=== PATIENT | male | born 1990 | race Hispanic/Latino ===

== ENCOUNTER 2019-07-26 02:43 | Emergency (ER) | payer SELFPAY ==
[2019-07-26] MEDS ORDERED: NA CHLORIDE 0.9% 0 ML ONE (02:55)
[2019-07-26] MEDS ORDERED: PROPOFOL 200 MG/20 ML VIAL IV ONE ×2 (02:55→02:59)
[2019-07-26] MEDS ORDERED: NA CHLORIDE 0.9% 1,000 ML ONE (02:59)
[2019-07-26] MEDS ORDERED: ETOMIDATE 20 MG/10 ML VIAL IV ONE (03:24)
[2019-07-26] MEDS ORDERED: FENTANYL CITR 100 MCG/2 ML ONE (03:24)
[2019-07-26] MEDS ORDERED: KETOROLAC 30 MG/ML INJ ONE (03:49)
--- NOTE | 2019-07-26 04:14 | EDPHYS ---
Physician Documentation [facility] Name: Umer Damian Jr Age: 29 yrs Sex: Male : 1990 Arrival Date: 07/26/2019 Time: 02:44 Bed 4 Private MD: ED Physician Nito Hernandez HPI: 07/26 03:56 This 29 yrs old Male presents to ER via Unassigned with complaints of Shoulder tw4 Dislocated. 03:56 The patient or guardian complains of deformity, an injury. right shoulder. Context: The tw4 problem was sustained at home. Onset: The symptoms/episode began/occurred today. Modifying factors: the symptoms are alleviated by nothing. The symptoms are aggravated by lifting weight. Associated signs and symptoms: The patient has no apparent associated signs or symptoms. Severity of symptoms: At their worst the symptoms were mild, in the emergency department the symptoms are unchanged. The patient has not experienced similar symptoms in the past. Historical: - Allergies: 02:55 NKDA; bb - Home Meds: 02:55 None [Active]; bb - PMHx: 02:55 Anxiety; repeated right shoulder dislocations; bb - PSHx: 02:55 None; bb - Immunization history:: Adult Immunizations up to date. - Social history:: Smoking status: Patient/guardian denies using tobacco. - Ebola Screening: : No symptoms or risks identified at this time. ROS: 03:56 Constitutional: Negative for fever, chills, and weight loss, Eyes: Negative for injury, tw4 pain, redness, and discharge, Cardiovascular: Negative for chest pain, palpitations, and edema, Respiratory: Negative for shortness of breath, cough, wheezing, and pleuritic chest pain, Abdomen/GI: Negative for abdominal pain, nausea, vomiting, diarrhea, and constipation, Back: Negative for injury and pain. 03:56 Skin: Negative for injury, rash, and discoloration, Neuro: Negative for headache, weakness, numbness, tingling, and seizure. 03:56 MS/extremity: Positive for injury or acute deformity, decreased range of motion, deformity, swelling, tenderness. Exam: 03:56 Constitutional: This is a well developed, well nourished patient who is awake, alert, tw4 and in no acute distress. Head/Face: Normocephalic, atraumatic. Chest/axilla: Normal chest wall appearance and motion. Nontender with no deformity. No lesions are appreciated. Cardiovascular: Regular rate and rhythm with a normal S1 and S2. No gallops, murmurs, or rubs. Normal PMI, no JVD. No pulse deficits. Respiratory: Lungs have equal breath sounds bilaterally, clear to auscultation and percussion. No rales, rhonchi or wheezes noted. No increased work of breathing, no retractions or nasal flaring. Abdomen/GI: Soft, non-tender, with normal bowel sounds. No distension or tympany. No guarding or rebound. No evidence of tenderness throughout. Skin: Warm, dry with normal turgor. Normal color with no rashes, no lesions, and no evidence of cellulitis. 03:56 Musculoskeletal/extremity: Extremities: noted in the anterior aspect of right shoulder: decreased ROM, deformity, ROM: limited active range of motion due to pain, limited passive range of motion due to pain, Circulation is intact in all extremities. Sensation intact. Severe pain noted. Compartment Syndrome exam of affected extremity: is normal. Vital Signs: 02:55 BP 137 / 94; Pulse 73; Resp 18 S; Temp 97.6(O); Pulse Ox 100% on R/A; Weight 75.3 kg bb (R); Height 5 ft. 6 in. (167.64 cm) (R); Pain 10/10; 03:15 BP 126 / 88; Pulse 50; Resp 16; Temp 98; Pulse Ox 100% on R/A; ea 03:51 BP 136 / 87; Pulse 64; Resp 16; Pulse Ox 99% on R/A; ea 04:20 BP 135 / 76; Pulse 60; Resp 16; Temp 97.5(TE); Pulse Ox 100% ; ea 02:55 Body Mass Index 26.79 (75.30 kg, 167.64 cm) Procedures: 04:15 Reduction: of the right shoulder, using traction, Immobilized with shoulder tw4 immobilizer. Patient tolerated well. Post reduction film - reveals normal alignment. Moderate sedation: Pre-procedure assessment: the patient has been NPO 2 hour(s) prior to arrival, Monitoring during procedure: ekg monitor, continuous pulse oximetry, nurse at bedside at all times, Medications employed: Fentanyl, 25 mcg(s), Propofol 140mgs. MDM: 02:50 Patient medically screened. tw4 04:15 Differential diagnosis: Anterior dislocation with fracture, Anterior dislocation tw4 without fracture, Posterior dislocation with fracture, Posterior dislocation without fracture. Data reviewed: vital signs, nurses notes. Test interpretation: by ED physician or midlevel provider: plain radiologic studies. Counseling: I had a detailed discussion with the patient and/or guardian regarding: the historical points, exam findings, and any diagnostic results supporting the discharge/admit diagnosis, radiology results. 07/26 02:51 Order name: Shoulder Right (2 View) XRAY tw4 07/26 03:41 Order name: Shoulder (1 View) XRAY tw4 07/26 02:51 Order name: Saline Lock; Complete Time: 02:56 tw4 Administered Medications: 03:10 Drug: NS 0.9% 1000 ml Route: IV; Rate: 125 ml/hr; Site: left antecubital; ea 04:32 Follow up: Response: No adverse reaction; IV Status: Completed infusion; IV Intake: ea 1000ml 03:18 Drug: Propofol 100 mg Route: IVP; Site: left antecubital; ea 03:30 Follow up: Response: No adverse reaction ea 03:50 Drug: TORadol 30 mg Route: IVP; Site: left antecubital; ea 04:10 Follow up: Response: No adverse reaction; Pain is decreased ea Disposition: 07/26/19 04:13 Discharged to Home. Impression: Recurrent dislocation, right shoulder. - Condition is Stable. - Discharge Instructions: Form - Return To Work, Shoulder Dislocation. - Prescriptions for Ibuprofen 800 mg Oral Tablet - take 1 tablet by ORAL route every 8 hours As needed take with food; 30 tablet. Tylenol- Codeine #3 300-30 mg Oral Tablet - take 2 tablet by ORAL route every 6 hours As needed; 30 tablet. - Work release form, Medication Reconciliation Form, Thank You Letter, Antibiotic Education, Prescription Opioid Use form. - Follow up: Marcos Corrales MD; When: Upon discharge from the Emergency Department; Reason: If symptoms return, Recheck today's complaints, Continuance of care. - Problem is new. - Symptoms have improved. Signatures: Dispatcher [employer] EDRenetta Colón RN RN bb Antunez, Elena, RN RN ea Wadley, Terrence, MD MD tw4 Corrections: (The following items were deleted from the chart) 04:34 04:13 07/26/2019 04:13 Discharged to Home. Impression: Recurrent dislocation, right ea shoulder. Condition is Stable. Discharge Instructions: Form - Return To Work. Forms are Medication Reconciliation Form, Thank You Letter, Antibiotic Education, Prescription Opioid Use. Follow up: Marcos Corrales; When: Upon discharge from the Emergency Department; Reason: If symptoms return, Recheck today's complaints, Continuance of care. Problem is new. Symptoms have improved. tw4
--- NOTE | 2019-07-26 04:14 | ER ---
Nurse's Notes [facility] Name: Umer Damian Jr Age: 29 yrs Sex: Male : 1990 Arrival Date: 07/26/2019 Time: 02:44 Bed 4 Private MD: Diagnosis: Recurrent dislocation, right shoulder Presentation: 07/26 02:53 Presenting complaint: Patient states: Reports he woke up with right shoulder pain, pt ea reports history of right shoulder dislocation. Transition of care: patient was not received from another setting of care. Onset of symptoms was July 26, 2019. Risk Assessment: Do you want to hurt yourself or someone else? Patient reports no desire to harm self or others. Initial Sepsis Screen: Does the patient meet any 2 criteria? No. Patient's initial sepsis screen is negative. Does the patient have a suspected source of infection? No. Patient's initial sepsis screen is negative. Care prior to arrival: None. 02:53 Method Of Arrival: Ambulatory ea 02:53 Acuity: CALI 3 ea Historical: - Allergies: 02:55 NKDA; bb - Home Meds: 02:55 None [Active]; bb - PMHx: 02:55 Anxiety; repeated right shoulder dislocations; bb - PSHx: 02:55 None; bb - Immunization history:: Adult Immunizations up to date. - Social history:: Smoking status: Patient/guardian denies using tobacco. - Ebola Screening: : No symptoms or risks identified at this time. Screenin:55 Abuse screen: Denies threats or abuse. Nutritional screening: No deficits noted. bb Tuberculosis screening: No symptoms or risk factors identified. Fall Risk None identified. Assessment: 02:53 General: Appears in no apparent distress. uncomfortable, Behavior is calm, cooperative. bb Pain: Complains of pain in right arm Pain currently is 10 out of 10 on a pain scale. Pain began suddenly. Neuro: Level of Consciousness is awake, alert, obeys commands, Oriented to person, place, time, situation. Cardiovascular: No deficits noted. Respiratory: Airway is patent Respiratory effort is even, unlabored, Respiratory pattern is regular. GI: No signs and/or symptoms were reported involving the gastrointestinal system. Derm: Skin is pink, warm \T\ dry. Musculoskeletal: Capillary refill < 3 seconds, Reports pain in right arm. 03:30 Reassessment: Patient and/or family updated on plan of care and expected duration. Pain ea level reassessed. Patient is alert, oriented x 3, equal unlabored respirations, skin warm/dry/pink. 04:31 Reassessment: Patient and/or family updated on plan of care and expected duration. Pain ea level reassessed. Patient is alert, oriented x 3, equal unlabored respirations, skin warm/dry/pink. Discharge instruction given to patient, verbalized the understanding of instruction. Pt left ED ambulatory with significant other, pt tolerated well. Patient states feeling better. Vital Signs: 02:55 BP 137 / 94; Pulse 73; Resp 18 S; Temp 97.6(O); Pulse Ox 100% on R/A; Weight 75.3 kg bb (R); Height 5 ft. 6 in. (167.64 cm) (R); Pain 10/10; 03:15 BP 126 / 88; Pulse 50; Resp 16; Temp 98; Pulse Ox 100% on R/A; ea 03:51 BP 136 / 87; Pulse 64; Resp 16; Pulse Ox 99% on R/A; ea 04:20 BP 135 / 76; Pulse 60; Resp 16; Temp 97.5(TE); Pulse Ox 100% ; ea 02:55 Body Mass Index 26.79 (75.30 kg, 167.64 cm) bb ED Course: 02:44 Patient arrived in ED. ds1 02:50 Nito Hernandez MD is Attending Physician. tw4 02:55 Patient has correct armband on for positive identification. Call light in reach. Side bb rails up X 1. Adult w/ patient. Pulse ox on. NIBP on. Warm blanket given. 02:55 Arm band placed on right wrist. Patient placed in an exam room, on a stretcher, on ea pulse oximetry. 03:06 X-ray completed. Patient tolerated procedure well. kw 03:07 Shoulder Right (2 View) XRAY In Process Unspecified. EDMS 03:15 Inserted saline lock: 20 gauge in left antecubital area, using aseptic technique. ea 03:18 Assist provider with reduction of right shoulder using manipulation, Set up for ea procedure. Performed by Nito Hernandez MD Immobilized with shoulder immobilizer Patient tolerated well. 03:50 Shoulder (1 View) XRAY In Process Unspecified. EDMS 03:54 Deanna Latham, RN is Primary Nurse. ea 03:59 Triage completed. ea 04:12 Marcos Corrales MD is Referral Physician. tw4 04:30 IV discontinued, intact, bleeding controlled, No redness/swelling at site. Pressure ea dressing applied. Administered Medications: 03:10 Drug: NS 0.9% 1000 ml Route: IV; Rate: 125 ml/hr; Site: left antecubital; ea 04:32 Follow up: Response: No adverse reaction; IV Status: Completed infusion; IV Intake: ea 1000ml 03:18 Drug: Propofol 100 mg Route: IVP; Site: left antecubital; ea 03:30 Follow up: Response: No adverse reaction ea 03:50 Drug: TORadol 30 mg Route: IVP; Site: left antecubital; ea 04:10 Follow up: Response: No adverse reaction; Pain is decreased ea Intake: 04:32 IV: 1000ml; Total: 1000ml. ea Outcome: 04:13 Discharge ordered by . tw4 04:31 Discharged to home ambulatory, with significant other. ea 04:31 Condition: stable 04:31 Discharge instructions given to patient, family, Instructed on discharge instructions, follow up and referral plans. medication usage, Demonstrated understanding of instructions, follow-up care, medications, Prescriptions given X 2. 04:34 Patient left the ED. ea Signatures: Dispatcher [employer] [facility] Tammi Miranda ds1 Renetta Angeles, RN Ashley Mares Deanna Latham, Nito Bender RN, ea, MD MD tw4
[2019-07-26 04:40] VITALS: O2SAT 100
[2019-07-26 04:47] VITALS: BP 135/76; TEMP 97.5
--- NOTE | 2019-07-26 08:04 | RAD REPORT ---
EXAM DESCRIPTION: RAD - Shoulder 1 View - 07/26/2019 3:51 am CLINICAL HISTORY: Right shoulder dislocation FINDINGS: Limited one view series obtained Previously described shoulder dislocation appears reduced. A Hill-Sachs deformity is present The humeral head is high riding on this image which may be secondary to positioning.
--- NOTE | 2019-07-26 08:05 | RAD REPORT ---
EXAM DESCRIPTION: RAD - Shoulder Right 2 View - 07/26/2019 3:08 am CLINICAL HISTORY: Right shoulder pain status post injury FINDINGS: Anterior humeral head dislocation. No fracture seen
== END 2019-07-26 04:34 | disposition home or self-care (01) ==
LOC: ER 02:43
PROC: 0RSJXZZ Reposition Right Shoulder Joint, External Approach (ICD-10-PCS; principal; 2019-07-26)
DX: M24.411 Recurrent dislocation, right shoulder (principal); X58.XXXA Exposure to other specified factors, initial encounter; Y93.9 Activity, unspecified; Y92.009 Unspecified place in unspecified non-institutional (private) residence as the place of occurrence of the external cause
CPT/HCPCS: 73020; 96361; 96374; 96375; 99285; J2704; J3010; J7030

== ENCOUNTER 2019-10-07 08:03 | Emergency (ER) | payer OTHER ==
--- OUTSIDE RECORDS SUMMARY | 2019-10-07 08:05 | XMS REPORT ---
:1990 Author Organization e[employer] Care Team Providers Name Role Phone Tiago Stinson Provider Role Unavailable Allergies No Known Allergies Problems No Known Problems Medications No Known Medications Results No Known Results Summary Purpose eClinicalWorks Submission
--- OUTSIDE RECORDS SUMMARY | 2019-10-07 08:05 | XMS REPORT ---
:1990 Author Organization [employer] Care Team Providers Name Role Tiago Monroy Provider Role Unavailable Allergies, Adverse Reactions, Alerts Substance Reaction Event Type N.K.D.A. Info Not Available Non Drug Allergy Problems Problem Type Condition Code Onset Dates Condition Status Assessment Pain, joint, shoulder, right M25.511 Active Assessment Recurrent dislocation of right M24.411 Active shoulder Assessment Tear of right glenoid labrum, S43.431A Active initial encounter Medications No Known Medications Results No Known Results Summary Purpose eClinicalWorks Submission
[2019-10-07] MEDS ORDERED: LIDOCAINE 1% MPF 5 ML VIAL ONE (08:24)
--- NOTE | 2019-10-07 09:16 | ER ---
Nurse's Notes [facility] Name: Umer Damian Jr Age: 29 yrs Sex: Male : 1990 Arrival Date: 10/07/2019 Time: 08:05 Bed 5 Private MD: Diagnosis: Laceration of Axilla Presentation: 10/07 08:16 Presenting complaint: Patient states: was working on some windows last night, fell onto iw a piece of glass, laceration to left axillary area, not bleeding, incident occurred at 0100 this morning. Transition of care: patient was not received from another setting of care. Complicating Factors: There are no complicating factors for this patient. Onset of symptoms was October 07, 2019. Risk Assessment: Do you want to hurt yourself or someone else? Patient reports no desire to harm self or others. Initial Sepsis Screen: Does the patient meet any 2 criteria? No. Patient's initial sepsis screen is negative. Does the patient have a suspected source of infection? No. Patient's initial sepsis screen is negative. Care prior to arrival: None. 08:16 Method Of Arrival: Ambulatory 08:16 Acuity: CALI 4 iw Historical: - Allergies: 08:19 NKDA; iw 08:18 NKDA; ph - Home Meds: 08:19 None [Active]; iw - PMHx: 08:19 Anxiety; repeated right shoulder dislocations; iw 08:18 Anxiety; repeated right shoulder dislocations; ph - PSHx: 08:19 None; iw 08:18 None; ph - Immunization history:: Adult Immunizations Last tetanus immunization: unknown, Adult Immunizations unknown. - Social history:: Smoking status: unknown. - Ebola Screening: : Patient negative for fever greater than or equal to 101.5 degrees Fahrenheit, and additional compatible Ebola Virus Disease symptoms Patient denies exposure to infectious person Patient denies travel to an Ebola-affected area in the 21 days before illness onset No symptoms or risks identified at this time No symptoms or risks identified at this time. Screenin:17 Abuse screen: Denies threats or abuse. Denies injuries from another. Nutritional ph screening: No deficits noted. Tuberculosis screening: No symptoms or risk factors identified. Fall Risk None identified. Assessment: 08:28 General: Appears in no apparent distress. comfortable, slender, Behavior is calm, ph cooperative, appropriate for age. Pain: Complains of pain in left axilla. Neuro: Level of Consciousness is awake, alert, obeys commands, Oriented to person, place, time, situation. Cardiovascular: Capillary refill < 3 seconds in bilateral fingers Patient's skin is warm and dry. Respiratory: Airway is patent Respiratory effort is even, unlabored, Respiratory pattern is regular, symmetrical. Derm: Skin is healthy with good turgor, Skin is pink, warm \T\ dry. Musculoskeletal: Circulation, motion, and sensation intact. Range of motion: intact in all extremities. Injury Description: Laceration sustained to left axilla is clean, 0.5 to 2.5 cm long, not bleeding, was sustained 6-12 hours ago. 09:38 Reassessment: Patient appears in no apparent distress at this time. Patient and/or ph family updated on plan of care and expected duration. Pain level reassessed. Patient is alert, oriented x 3, equal unlabored respirations, skin warm/dry/pink. D/C pending 15 min shot time. Vital Signs: 08:17 BP 124 / 83; Pulse 72; Resp 20; Pulse Ox 100% on R/A; ph 09:58 BP 119 / 78; Pulse 71; Resp 18; Pulse Ox 98% on R/A; ph ED Course: 08:05 Patient arrived in ED. mr 08:11 Boni Brannon MD is Attending Physician. kdr 08:14 Darin Mccall PA is PHCP. iw 08:18 Triage completed. iw 08:19 Arm band placed on. iw 08:28 Sweta Kyle RN is Primary Nurse. ph 08:31 Patient has correct armband on for positive identification. Placed in gown. Bed in low ph position. Call light in reach. Side rails up X 1. Pulse ox on. NIBP on. Door closed. Noise minimized. Warm blanket given. 09:58 No provider procedures requiring assistance completed. Patient did not have IV access ph during this emergency room visit. Administered Medications: 09:00 Drug: Lidocaine (1 %) 1 amp Volume: 5 ml; Route: Infiltration; ph 09:57 Follow up: Response: No adverse reaction ph 09:37 Drug: Tetanus-Diphtheria Toxoid Adult 0.5 ml {Director Of Services: [employer]. Exp: ph 04/20/2021. Lot #: [id number]. } Route: IM; Site: right deltoid; 09:57 Follow up: Response: No adverse reaction ph Outcome: 09:15 Discharge ordered by . melanie 09:58 Discharged to home ambulatory, with family. ph 09:58 Condition: good 09:58 Discharge instructions given to patient, Instructed on discharge instructions, follow up and referral plans. wound care, Demonstrated understanding of instructions, follow-up care, wound care. 09:59 Patient left the ED. ph Signatures: Boni Brannon MD MD kdr Mickail, Joel, PA PA jmm Rivera, Mary mr Williams, Irene, RN RN Sweta Kyle RN RN ph
--- NOTE | 2019-10-07 09:16 | EDPHYS ---
Physician Documentation [facility] Name: Umer Damian Jr Age: 29 yrs Sex: Male : 1990 Arrival Date: 10/07/2019 Time: 08:05 Bed 5 Private MD: ED Physician Boni Brannon HPI: 10/07 08:22 This 29 yrs old Male presents to ER via Ambulatory with complaints of jmm Laceration. 08:22 The patient or guardian complains of injury, a laceration. Onset: The symptoms/episode jmm began/occurred acutely, 6 hour(s) ago. Associated signs and symptoms: Pertinent negatives: erythema, fever, swelling. This is a 29 year old male with a history of anxiety that presents to the ED with complaints of left shoulder laceration after falling on broken glass early this morning. Patient is not UTD on tetanus immunizations. Denies other injury. Historical: - Allergies: 08:19 NKDA; iw 08:18 NKDA; ph - Home Meds: 08:19 None [Active]; iw - PMHx: 08:19 Anxiety; repeated right shoulder dislocations; iw 08:18 Anxiety; repeated right shoulder dislocations; ph - PSHx: 08:19 None; iw 08:18 None; ph - Immunization history:: Adult Immunizations Last tetanus immunization: unknown, Adult Immunizations unknown. - Social history:: Smoking status: unknown. - Ebola Screening: : Patient negative for fever greater than or equal to 101.5 degrees Fahrenheit, and additional compatible Ebola Virus Disease symptoms Patient denies exposure to infectious person Patient denies travel to an Ebola-affected area in the 21 days before illness onset No symptoms or risks identified at this time No symptoms or risks identified at this time. ROS: 08:22 Constitutional: Negative for fever, chills, and weight loss, Cardiovascular: Negative jmm for chest pain, palpitations, and edema, Respiratory: Negative for shortness of breath, cough, wheezing, and pleuritic chest pain. 08:22 Skin: Positive for laceration(s). 08:22 All other systems are negative. Exam: 08:22 Constitutional: This is a well developed, well nourished patient who is awake, alert, jmm and in no acute distress. Head/Face: atraumatic. Eyes: EOMI, no conjunctival erythema appreciated ENT: Moist Mucus Membranes Neck: Trachea midline, Supple Chest/axilla: Normal chest wall appearance and motion. Cardiovascular: Regular rate and rhythm. No edema appreciated Respiratory: Normal respirations, no respiratory distress appreciated Abdomen/GI: Non distended, soft Back: Normal ROM 08:22 Skin: 1.5 cm laceration noted to the left anterior shoulder. 08:22 Neuro: Orientation: is normal, Mentation: is normal, Memory: is normal. 08:22 Psych: Behavior/mood is pleasant, cooperative. Vital Signs: 08:17 BP 124 / 83; Pulse 72; Resp 20; Pulse Ox 100% on R/A; ph 09:58 BP 119 / 78; Pulse 71; Resp 18; Pulse Ox 98% on R/A; ph Laceration: 09:13 Wound Repair of 1.5cm ( 0.6in ) subcutaneous laceration to left axilla. Distal jmm neuro/vascular/tendon intact. Anesthesia: Local anesthetic administered with 2 mls of 1% lidocaine. Wound prep: Moderate cleansing with betadine by me. Skin closed with 2 4-0 Prolene using simple sutures and sterile technique. Patient tolerated well. MDM: 08:22 Patient medically screened. [facility] 09:13 Data reviewed: vital signs, nurses notes. Counseling: I had a detailed discussion with melanie the patient and/or guardian regarding: the historical points, exam findings, and any diagnostic results supporting the discharge/admit diagnosis, the need for outpatient follow up, to return to the emergency department if symptoms worsen or persist or if there are any questions or concerns that arise at home. ED course: Patient given wound infection return precautions. Patient understood and agrees with the plan of care. . 10/07 08:57 Order name: Prolene, Sutures; Complete Time: 08:56 ph 10/07 08:57 Order name: Dressing - Wound; Complete Time: 08:56 ph 10/07 08:57 Order name: Gloves, Sterile; Complete Time: 08:56 ph 10/07 08:57 Order name: Setup Suture Tray; Complete Time: 08:56 ph Administered Medications: 09:00 Drug: Lidocaine (1 %) 1 amp Volume: 5 ml; Route: Infiltration; ph 09:57 Follow up: Response: No adverse reaction ph 09:37 Drug: Tetanus-Diphtheria Toxoid Adult 0.5 ml {[employer]amp [employer] Light: [employer]. Exp: ph 04/20/2021. Lot #: [id number]. } Route: IM; Site: right deltoid; 09:57 Follow up: Response: No adverse reaction ph Disposition: 16:38 Co-signature as Attending Physician, Boni Brannon MD I agree with the assessment and kdr plan of care. Disposition: 10/07/19 09:15 Discharged to Home. Impression: Laceration of Axilla. - Condition is Stable. - Discharge Instructions: Laceration Care, Adult. - Medication Reconciliation Form, Thank You Letter, Antibiotic Education, Prescription Opioid Use form. - Follow up: Private Physician; When: 1 week; Reason: Recheck today's complaints, Continuance of care, Staple/Suture removal, Re-evaluation by your physician. Signatures: Boni Brannon MD MD kdr Mickail, Joel, PA PA jmm Williams, Irene, RAMONITA RN iw Sweta Kyle RN RN ph Corrections: (The following items were deleted from the chart) 09:59 09:15 10/07/2019 09:15 Discharged to Home. Impression: Laceration of Axilla. Condition ph is Stable. Forms are Medication Reconciliation Form, Thank You Letter, Antibiotic Education, Prescription Opioid Use. Follow up: Private Physician; When: 1 week; Reason: Recheck today's complaints, Continuance of care, Staple/Suture removal, Re-evaluation by your physician. melanie
[2019-10-07] MEDS ORDERED: TETANUS & DIPHTHERIA TOX,ADULT 0.5 ML VIAL ONE (09:31)
[2019-10-07 10:06] VITALS: BP 119/78; O2SAT 98
== END 2019-10-07 09:59 | disposition home or self-care (01) ==
LOC: ER 08:03
PROC: 0XQ5XZZ Repair Left Axilla, External Approach (ICD-10-PCS; principal; 2019-10-07)
DX: S41.112A Laceration without foreign body of left upper arm, initial encounter (principal); W01.110A Fall on same level from slipping, tripping and stumbling with subsequent striking against sharp glass, initial encounter; Y93.9 Activity, unspecified; Y92.9 Unspecified place or not applicable; Z23 Encounter for immunization
CPT/HCPCS: 90471; 90714; 99283

== ENCOUNTER 2019-11-01 06:10 | Day surgery (SDC) | payer OTHER ==
--- NOTE | 2019-10-11 10:06 | RAD REPORT ---
EXAM DESCRIPTION: Nirmal Mendes (2 Views)10/11/2019 9:00 am CLINICAL HISTORY: Preop COMPARISON: None FINDINGS: The lungs appear clear of acute infiltrate. The heart is normal size IMPRESSION: No acute abnormalities displayed
[2019-10-11 10:11] LABS: Absolute Lymphocytes (CBC) 1.9 K/uL (0.7-4.9); Basophils % 0.6 % (0-1.3); Hematocrit 40.9 % (39.6-49.0); Lymphocytes % 32.4 % (15.3-44.8); MPV 8.2 fL (7.6-11.3); Potassium 3.9 mmol/L (3.5-5.1); RBC Red Blood Cell Count 4.28 M/uL (4.33-5.43)
[2019-10-11 10:15] LABS: Protime INR 0.94
--- NOTE | 2019-10-11 12:03 | EKG ---
Test Date: 2019-10-11 Test Time: 08:37:33 Drug Safety Coordinator: AARON MEASUREMENT RESULTS: Intervals: Rate: 50 MN: 168 QRSD: 112 QT: 418 QTc: 381 [place]: P: 59 MN: 168 QRS: -24 T: -51 INTERPRETIVE STATEMENTS: Sinus bradycardia Minimal voltage criteria for LVH, may be normal variant Septal infarct, age undetermined Abnormal ECG Compared to ECG 04/30/2016 17:22:26 Left-axis deviation no longer present Myocardial infarct finding still present Electronically Signed On 10-11-19 12:03:18 [address] PASSENGER FIRER by Luis Daniel Donald
--- OUTSIDE RECORDS SUMMARY | 2019-11-01 06:16 | XMS REPORT ---
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
--- OUTSIDE RECORDS SUMMARY | 2019-11-01 06:16 | XMS REPORT ---
:1990 Author Organization eClinicalWorks Care Team Providers Name Role Phone Tiago Stinson Provider Role Unavailable Allergies, Adverse Reactions, Alerts Substance Reaction Event Type N.K.D.A. 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 Cyclobenzaprine HCl [facility] 89534119963 10 MG Oral Active TOME CASEY TABLETA POR V?A ORAL AL ACOSTARSE Tramadol HCl ND 26553478111 50 MG Orally Oct 06, Active 1 tablet Q6H PRN PAIN 2019 Ciprofloxacin HCl ND 25444401647 500 MG Oral Active TOME CASEY TABLETA DOS VECES AL D?A MethylPREDNISolone ND 48705922366 4 MG Oral Active TOME 6 TABLETAS EL PRIMER D?A SEG?N LO INDICA EL PAQUETE, Y REDUZCA 1 TABLETA CADA D?A POR 6 D? PrednisoLONE Acetate [facility] 42682410574 1 % Ophthalmic Active PONGA CASEY GOTA EN NAKITA HEIDY CUATRO VECES AL D?A Results No Known Results Summary Purpose eClinicalWorks Submission
--- OUTSIDE RECORDS SUMMARY | 2019-11-01 06:16 | XMS REPORT ---
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
[2019-11-01] MEDS ORDERED: LIDOCAINE 2% MPF 5 ML VIAL ONE ×2 (06:26→06:32)
[2019-11-01] MEDS ORDERED: MIDAZOLAM HCL 2 MG/2 ML INJ ONE (06:26)
[2019-11-01] MEDS ORDERED: propofoL 200 MG/20 ML VIAL IV ONE (06:26)
[2019-11-01] MEDS ORDERED: ROCURONIUM 50 MG/5 ML VIAL IV ONE (06:26)
[2019-11-01] MEDS ORDERED: FENTANYL CITR 100 MCG/2 ML ONE (06:26)
[2019-11-01] MEDS ORDERED: Ringers Lactate 1,000 ML IV ONE ×2 (06:28→07:04)
[2019-11-01] MEDS ORDERED: CEFAZOLIN/SWI 1gm 1 GM/10 ML SYR ONE (06:28)
[2019-11-01] MEDS ORDERED: dexAMETHasone 10 MG/ML VIAL ONE (06:32)
[2019-11-01] MEDS ORDERED: NS 0.9% VIAL 10 ML ONE (06:32)
[2019-11-01] MEDS ORDERED: ROPLVACAINE HCL 20 ML ONE (06:33)
[2019-11-01] MEDS ORDERED: EPINEPHRINE/PF 1 MG/ML AMP ONE (07:04)
[2019-11-01] MEDS ORDERED: ONDANSETRON 4 MG/2 ML VIAL ONE ×2 (08:18→09:58)
[2019-11-01] MEDS ORDERED: KETOROLAC 30 MG/ML INJ ONE (09:06)
[2019-11-01] MEDS: MORPHINE 4 MG/ML SYR ONE ×2 (09:37→09:53)
--- NOTE | 2019-11-01 09:38 | P.BOP ---
Preoperative diagnosis: right shoulder anterior labral tear Postoperative diagnosis: same Primary procedure: right shoulder arthroscopic anterior labral repair Boiler Helper: NONE,NONE Estimated blood loss: <10 cc Specimen: none Findings: see dictation Anesthesia: General Complications: None Implants: 3- 2.9 mm Arthrex pushlocks Fluids & blood products: per anesthesia record Transferred to: Recovery Room Condition: Good
[2019-11-01] MEDS ORDERED: MEPERIDINE HCL 25 MG/0.5 ML ONE (09:57)
[2019-11-01] MEDS ORDERED: MORPHINE 4 MG/ML SYR ONE (09:58)
--- NOTE | 2019-11-01 10:27 | RAD REPORT ---
EXAM DESCRIPTION: RAD - Shoulder 1 View - 11/01/2019 10:11 am CLINICAL HISTORY: ^POST RIGHT SHOULDER ARTHROSCOPIC BANKART REPAIR COMPARISON: MRI right FINDINGS: Single postop review of the right shoulder shows no fracture or dislocation of the proxima l humerus. AC joint is normal. Acromial humeral joint space is normal. Small defect is seen in the in ferior aspect of the glenoid, presumed to be area of surgical repair. IMPRESSION: Postop right shoulder examination showing no suspicious or unexpected finding.
[2019-11-01] MEDS ORDERED: HYDROCODONE/APAP 7.5/325 MG TAB ONE (11:11)
[2019-11-01 15:51] VITALS: BP 131/92; TEMP 96.9; O2SAT 97
--- NOTE | 2019-11-01 22:04 | OP ---
Date of Procedure: 11/01/2019 Surgeon: Tiago Stinson MD Preoperative Diagnosis: Right shoulder Bankart tear. Postoperative Diagnosis: Right shoulder Bankart tear. Procedure Performed: Right shoulder arthroscopic Bankart anterior labrum repair. Anesthesia: General endotracheal. Fluids: Per Anesthesia record. Estimated Blood Loss: 10 cc. Complications: None. Implants: Three 2.9 mm Arthrex PushLocks. Indication For Procedure: Mr. Damian is a 29-year-old male presented to my clinic with signs, symptom s of chronic instability to his right shoulder. The patient had an MRI of his right shoulder, which demonstrated a right shoulder anterior labrum tear with no significant bone deficiency or glenoid bon e deficiency. I discussed with the patient at length risks and benefits associated with operative an d nonoperative treatment. Given his recurrent dislocations and difficulty with ADLs, I recommended o perative treatment. The patient expressed understanding and elected to proceed with operative treatm ent. Description Of Procedure: After informed consent was obtained, the patient was identified in the pre operative holding area. The right upper extremity was marked. The patient was then taken to the PAC U and underwent an interscalene block to the right upper extremity performed by Anesthesia. The sonny ent was then taken back to the operating room, transferred to the operating table in the supine fashi on, placed under general endotracheal anesthesia. He was placed in a left lateral decubitus position with an axillary roll placed and his extremities well padded. The right extremity was then examined . The right shoulder was then examined. The patient did have instability with the anterior subluxat ion of his glenohumeral joint. This right upper extremity was then prepped and draped in usual steri le fashion. A time-out was initiated. The correct patient and procedure were confirmed and identifi ed. The patient did receive his preoperative prophylactic antibiotics. His arm was held distracted on using a lateral arm positioner with approximately 5 pounds of weight to hold the arm in an abducte d forward flexed position. Standard posterior portal was created and a diagnostic arthroscopy was pe rformed. The patient did not have any significant chondral defects. He did have significant fraying of the anterior labrum with an anterior labral tear with anterior labrum following beneath the gleno humeral surface. The subscapularis was found to be intact as well as the supraspinatus and infraspin atus. No loose bodies noted. Anterior superior lateral portal was then created passing sutures in t he low anterior. Working portal was placed just superior to the subscapularis. An elevator was then used to elevate the anterior labrum off the glenoid surface. After it was elevated, it did rise to the level of the glenoid rim. Subscapularis fibers were identified. After complete release of the a nterior labrum was completed, a 45-degree suture Lasso was then used to graft part of the anterior-in ferior capsule as well as anterior labrum near the 6 o'clock position. After the Lasso was passed, a suture tape was placed through the tissue and it was secured to the base of the glenoid using a 2.5 Arthrex PushLock and a bumper was created and there was good overall reduction of the anterior labrum onto the glenoid. Next, a suture Lasso was again passed through the anterior-inferior portal, cannu la, again anterior labrum and capsule was pierced with the suture Lasso. Suture tape was passed and a second PushLock 2.9 mm PushLock was placed at approximately the 4-30 position on the glenoid face. Again, the bumper was created with the labrum and finally a third pass was made through the anterior tissue labrum at approximately 3 o'clock position using a suture Lasso and suture tape. Third sutur e tape was passed and it was fixed to the glenoid surface using a 2.9 mm PushLock for a total of 3 an chors. There was overall good reduction of the anterior labrum on the glenoid with the bumper being placed. The shoulder was in stress, there was no obvious dislocation or subluxation noted at that po int. The arthroscopic instruments were then removed without complication. The wounds were then irri gated thoroughly with normal saline and subcutaneous tissue was approximated using a 3-0 Monocryl. S terile dressings were applied. The patient was placed in a shoulder immobilizer, awakened, and trans ferred to PACU in stable condition. Postoperative Plan: He will be nonweightbearing of his right upper extremity. Will remain in a shou lder immobilizer. He will follow up later this week for wound check and will begin physical therapy 2 weeks for Bankart repair protocol. HARVEY/MAINE Voice ID: [id number] Report ID: [id number]
== END 2019-11-01 11:45 | disposition home or self-care (01) ==
LOC: OR 06:10
PROVIDERS: ATTEND Orthopaedic Surgery Sports Medicine
PROC: 0RQJ4ZZ Repair Right Shoulder Joint, Percutaneous Endoscopic Approach (ICD-10-PCS; principal; 2019-11-01 07:30)
DX: S43.431A Superior glenoid labrum lesion of right shoulder, initial encounter (principal); M24.411 Recurrent dislocation, right shoulder
CPT/HCPCS: 93005; 85025; 80048; 36415; 85610; 85730; 71046; 73020; 29806; J2704; J0171; J2250; J3010; J1100; J2175; J2795; J0690; J7120 ×2; J2405 ×2

== ENCOUNTER 2021-07-14 09:57 | Emergency (ER) | payer OTHER ==
--- OUTSIDE RECORDS SUMMARY | 2021-07-14 10:00 | XMS REPORT | Continuity of Care Document ---
:1990 Author Organization [facility] t Address [address] [place] [id number] Care Team Providers Name Role Phone Unavailable Unavailable Unavailable Problems Condition Condition Condition Status Onset Resolution Last Treating Co mments Source Name Details Category Date Date Treatment Clinician Date Recurrent Recurrent Problem Active [facility] dislocatio dislocatio Jacinta kes - n of right n of right Me moria shoulder shoulder l Outpat[facility] ent Clinics Tear of Tear of Problem Active [facility] right right [facility] glenoid glenoid [facility] labrum, labrum, l initial initial Outpati encounter encounter ent Clinics Pain, Pain, Problem Active [facility] joint, joint, [facility] - shoulder, shoulder, [place] susanne right right l Outpati ent Clinics Allergies, Adverse Reactions, Alerts This patient has no known allergies or adverse reactions. Medications Ordered Filled Start Stop Current Ordering Indication Dosage Frequency Signature Comments Components Source Medication Medication Date Date Medication? Clinician (SIG) Name Name Cyclobenzap Cyclobenzap Yes Tiago RICHARDSON CASEY [facility] rine HCl rine HCl Stinson TABLETA Luke s - POR V?A Memoria ORAL AL l [facility] Outpati ent Clinics Meloxicam Meloxicam Yes Tiago TOME CASEY [facility] Stinson TABLETA [facility] - TODOS LOS Memoria D? l Outpati ent Clinics Tramadol Tramadol Yes Tiago not [facility] HCl HCl Stinson defined [facility] Ciprofloxac Ciprofloxac Yes Tiago not [facility] in HCl in HCl Stinson defined [facility] Hydrocodone Hydrocodone Yes Tiago not [facility] -Acetaminop -Acetaminop Stinson defined [facility] MethylPREDN MethylPREDN Yes Tiago not [facility] ISolone ISolone Stinson defined [facility] PrednisoLON PrednisoLON Yes Tiago not [facility] E Acetate E Acetate Stinson defined Jacinta kes - Memoria [facility] Cyclobenzap Cyclobenzap Yes Tiago not [facility] rine HCl rine HCl Stinson defined [facility] - [facility] Meloxicam Meloxicam Yes Tiago not [facility] Stinson defined [facility] Procedures This patient has no known procedures. Encounters Start End Encounter Admission Attending Care Care Encounter Source Date/Time Date/Time Type Type Clinicians Facility Department ID 2020-01-31 2020-01-31 [facility] [id number] [facility] 09:28:00 09:28:00 [facility] 2020-01-29 2020-01-29 Outpatient [facility] [id number] [facility] 13[facility]16[facility]00 [facility]16[facility] 2019-12-18 2019-12-18 [facility] [id number] [facility] 08:30:00 08:30:00 [facility] 2019-12-15 2019-12-15 [facility] [id number] [facility] 09:40:00 09:40:00 [facility] 2019-12-14 2019-12-14 [facility] [id number] [facility] 16:48:00 16:48:00 t [facility] 2019-12-13 2019-12-13 [facility] [id number] 11:13:00 11:13:00 t [facility] 2019-11-29 2019-11-29 [facility] [id number] [facility] 13:29:00 13:29:00 t [facility] 2019-11-28 2019-11-28 [facility] [id number] [facility] 12[facility]57:00 12:57:00 t [facility] 2019-11-22 2019-11-22 [facility] [id number] [facility] 16:27:00 16:27:00 t [facility] 2019-11-16 2019-11-16 [facility] [id number] [address] 08:30:00 08:30:00 t [facility] 2019-11-06 2019-11-06 [facility] [id number] [address] 11:28:00 11:28:00 t [facility] 2019-11-03 2019-11-03 [facility] [id number] [address] 10:30:00 10:30:00 t [facility] 2019-10-24 2019-10-24 [facility] [id number] 08:59:00 08:59:00 t [facility] 2019-10-19 2019-10-19 [facility] [id number] [address] 09:42:00 09:42:00 t [facility] 2019-10-17 2019-10-17 [facility] [id number] 09:37:00 09:37:00 t [facility] 2019-10-10 2019-10-10 [facility] [id number] 13:20:00 13:20:00 t [facility] 2019-10-06 2019-10-06 Outpatient Urszula Samayoa [id number] [address] 08:30:00 08:30:00 t [facility] 2019-10-01 2019-10-01 Outpatient Urszula Samayoa [id number] [facility] 19:54:00 19:54:00 t [facility] 2019-09-13 2019-09-13 Outpatient Urszula Smith [id number] [facility] 09:30:00 09:30:00 t [facility] Clinics Results This patient has no known results.
--- NOTE | 2021-07-14 11:16 | RAD REPORT ---
EXAM DESCRIPTION: RAD - Chest Single View - 07/14/2021 11:05 am CLINICAL HISTORY: CHEST PAIN COMPARISON: September 2019 TECHNIQUE: AP portable chest image was obtained 07/14/2021 11:05 am . FINDINGS: Lung volumes are low accentuating the patient's baseline interstitial pattern. Minimal maegan ma or infiltrate could potentially be masked. There is no consolidation, mass or volume overload merry haley. Heart and vasculature are normal. No measurable pleural effusion and no pneumothorax. No acute b pricila abnormality seen. No acute aortic findings suspected. IMPRESSION: Shallow inspiration exam without acute cardiopulmonary finding. No significant change from the 2019 comparison.
[2021-07-14 11:31] LABS: Absolute Lymphocytes (CBC) 2.1 K/uL (0.7-4.9); Basophils % 0.7 % (0-1.3); Lymphocytes % 26.6 % (15.3-44.8); MPV 7.8 fL (7.6-11.3); RBC Red Blood Cell Count 4.47 M/uL (4.33-5.43)
[2021-07-14 11:36] LABS: Protime INR 0.97
[2021-07-14 11:53] LABS: ALT/SGPT 39 U/L (12-78); AST/SGOT 15 U/L (15-37); Albumin 4.1 g/dL (3.4-5.0); Alkaline Phosphatase 79 U/L (45-117); BUN Blood Urea Nitrogen 9 mg/dL (7-18); Bicarbonate 29 mmol/L (21-32); Bilirubin Direct 0.1 mg/dL (0-0.2); Bilirubin Total 0.6 mg/dL (0.2-1.0); Glucose Level 95 mg/dL (74-106); Magnesium 2.1 mg/dL (1.8-2.4); NT PRO-BNP 46 pg/mL (<125); Potassium 4.2 mmol/L (3.5-5.1); Protein, Total 7.6 g/dL (6.4-8.2); Sodium Level 139 mmol/L (136-145); Troponin (Emerg Dept Use Only) < 0.02 ng/mL (0.0-0.045)
--- NOTE | 2021-07-14 12:32 | ER ---
Nurse's Notes [facility] Name: Umer Damian Jr Age: 30 yrs Sex: Male : 1990 Arrival Date: 07/14/2021 Time: 09:59 Bed 28 Private MD: Diagnosis: Chest pain, unspecified Presentation: 07/14 10:02 Chief complaint: Left sided chest pain, described as a tearing sensation x 2-3 days. hb Today pain radiates to left arm and left mid back. Sent from Julio;s office for CP and abnormal EKG. Coronavirus screen: At this time, the client does not indicate any symptoms associated with coronavirus-19. Ebola Screen: No symptoms or risks identified at this time. Risk Assessment: Do you want to hurt yourself or someone else? Patient reports no desire to harm self or others. Onset of symptoms was July 12, 2021. 10:02 Method Of Arrival: Ambulatory hb 10:02 Acuity: CALI 3 hb Historical: - Allergies: 10:04 NKDA; hb - PMHx: 10:04 Anxiety; repeated right shoulder dislocations; hb - Immunization history:: Client reports receiving the Mat \T\ Mat single-dose vaccine. - Social history:: Smoking status: Patient denies any tobacco usage or history of. Screenin:33 Abuse screen: Denies threats or abuse. Denies injuries from another. Nutritional ch5 screening: No deficits noted. Tuberculosis screening: No symptoms or risk factors identified. Fall Risk None identified. Assessment: 10:23 General: Reports Chest pain that woke him up, Tearing pain. Pain: Pain does not ch5 radiate. Pain: Pain began suddenly. Cardiovascular: Chest pain is described as quality is sharp, is located in chest wall. Vital Signs: 10:02 BP 148 / 86; Pulse 50; Resp 16; Temp 97.8; Pulse Ox 100% on R/A; Weight 79.38 kg; hb Height 5 ft. 6 in. (167.64 cm); Pain 8/10; 10:33 BP 119 / 74; Pulse 49; Resp 18; Pulse Ox 98% on R/A; Pain 8/10; ch5 11:33 BP 117 / 74; Pulse 55; Resp 18; Pulse Ox 100% on R/A; Pain 8/10; ch5 12:30 BP 125 / 72; Pulse 56; Resp 18; Pulse Ox 99% on R/A; Pain 4/10; ch5 10:02 Body Mass Index 28.25 (79.38 kg, 167.64 cm) hb Vitals: 10:33 Cardiac Rhythm Assessment Sinus julianna. ch5 ED Course: 09:59 Patient arrived in ED. as 10:04 Triage completed. hb 10:04 Arm band placed on. hb 10:16 Twin Burger PA is PHCP. jr8 10:16 Cody Dickson MD is Attending Physician. jr8 10:23 Dominic Devlin, RAMONITA is Primary Nurse. ch5 10:33 Patient has correct armband on for positive identification. Side rails up X2. Cardiac ch5 monitor on. Pulse ox on. NIBP on. 11:04 XRAY Chest (1 view) In Process Unspecified. EDMS 11:25 Initial lab(s) drawn, by me, sent to lab. Inserted saline lock: 22 gauge in left iw antecubital area, using aseptic technique. Blood collected. Patient maintains SpO2 saturation greater than 95% on room air. 12:31 Luis Daniel Donald MD is Referral Physician. jr8 12:58 No provider procedures requiring assistance completed. intact. ch5 Administered Medications: 13:03 Not Given (Patient Refused): Ketorolac 15 mg IVP once ch5 Outcome: 12:31 Discharge ordered by . jr8 12:58 Discharged to home ambulatory. ch5 12:58 Condition: improved 12:58 Discharge instructions given to patient, Prescriptions given X 1. 13:02 Patient left the ED. ch5 Signatures: Dispatcher [employer] EDOR Mell Davis Irene, RN RN Twin Burger PA PA jr8 Shae Burns RN RN Dominic Devlin, RAMONITA RN 5
--- NOTE | 2021-07-14 12:32 | EDPHYS ---
Physician Documentation [facility] Name: Umer Damian Jr Age: 30 yrs Sex: Male : 1990 Arrival Date: 07/14/2021 Time: 09:59 Bed 28 Private MD: ED Physician Cody Dickson HPI: 07/14 11:58 This 30 yrs old Male presents to ER via Ambulatory with complaints of Chest jr8 Pain - abnormal ekg, Numbness Of Arm. 11:58 The patient or guardian reports chest pain that is located primarily in the anterior jr8 chest wall, left. The pain does not radiate. Associated signs and symptoms: The patient has no apparent associated signs or symptoms. The chest pain is described as sharp. Duration: The patient or guardian reports multiple episodes, that are intermittent, that wax and wane. Modifying factors: The symptoms are alleviated by nothing. the symptoms are aggravated by breathing, exertion, movement. Severity of pain: At its worst the pain was moderate in the emergency department the pain has improved mildly. The patient has not experienced similar symptoms in the past. The patient has been recently seen by a physician: the patient's primary care provider, Sent to ED for further evaluation . 12:13 This is a 30-year-old male patient that saw his PCP today for ongoing left-sided chest jr8 pain with breathing and motion. Stated that he has had it for the past several days on and off but that had become worse. PCP saw abnormal EKG and was sent to the emergency room for further evaluation.. Historical: - Allergies: 10:04 NKDA; hb - PMHx: 10:04 Anxiety; repeated right shoulder dislocations; hb - Immunization history:: Client reports receiving the Mat \T\ Mat single-dose vaccine. - Social history:: Smoking status: Patient denies any tobacco usage or history of. ROS: 12:17 Eyes: Negative for injury, pain, redness, and discharge, ENT: Negative for injury, jr8 pain, and discharge, Neck: Negative for injury, pain, and swelling, Respiratory: Negative for shortness of breath, cough, wheezing, and pleuritic chest pain, Abdomen/GI: Negative for abdominal pain, nausea, vomiting, diarrhea, and constipation, Back: Negative for injury and pain, MS/Extremity: Negative for injury and deformity, Skin: Negative for injury, rash, and discoloration, Neuro: Negative for headache, weakness, numbness, tingling, and seizure. 12:17 Cardiovascular: Positive for chest pain, Negative for edema, orthopnea, palpitations, paroxysmal nocturnal dyspnea. Exam: 12:17 Constitutional: This is a well developed, well nourished patient who is awake, alert, jr8 and in no acute distress. Neck: Trachea midline, no thyromegaly or masses palpated, and no cervical lymphadenopathy. Supple, full range of motion without nuchal rigidity, or vertebral point tenderness. No Meningismus. Cardiovascular: Regular rate and rhythm with a normal S1 and S2. No gallops, murmurs, or rubs. Normal PMI, no JVD. No pulse deficits. Respiratory: Lungs have equal breath sounds bilaterally, clear to auscultation and percussion. No rales, rhonchi or wheezes noted. No increased work of breathing, no retractions or nasal flaring. Abdomen/GI: Soft, non-tender, with normal bowel sounds. No distension or tympany. No guarding or rebound. No evidence of tenderness throughout. Back: No spinal tenderness. No costovertebral tenderness. Full range of motion. Skin: Warm, dry with normal turgor. Normal color with no rashes, no lesions, and no evidence of cellulitis. MS/ Extremity: Pulses equal, no cyanosis. Neurovascular intact. Full, normal range of motion. Neuro: Awake and alert, GCS 15, oriented to person, place, time, and situation. Cranial nerves II-XII grossly intact. Motor strength 5/5 in all extremities. Sensory grossly intact. Cerebellar exam normal. Normal gait. 12:17 Chest/axilla: Inspection: normal, Palpation: tenderness, that is moderate, of the anterior aspect of left upper chest, that partially reproduces the patient's complaints, Axilla: are normal, Lymph nodes: lymphadenopathy is not appreciated. Vital Signs: 10:02 BP 148 / 86; Pulse 50; Resp 16; Temp 97.8; Pulse Ox 100% on R/A; Weight 79.38 kg; hb Height 5 ft. 6 in. (167.64 cm); Pain 8/10; 10:33 BP 119 / 74; Pulse 49; Resp 18; Pulse Ox 98% on R/A; Pain 8/10; ch5 11:33 BP 117 / 74; Pulse 55; Resp 18; Pulse Ox 100% on R/A; Pain 8/10; ch5 12:30 BP 125 / 72; Pulse 56; Resp 18; Pulse Ox 99% on R/A; Pain 4/10; ch5 10:02 Body Mass Index 28.25 (79.38 kg, 167.64 cm) hb MDM: 10:16 Patient medically screened. jr8 12:22 Differential diagnosis: abnormal EKG, acute myocardial infarction, acute pericarditis, jr8 anxiety, chest wall pain, costochondritis, esophagitis, gastroesophageal reflux disease (GERD), myocarditis, pleurisy, pneumonia, pulmonary embolus, stable angina, thoracic aortic disection, unstable angina. Data reviewed: vital signs, nurses notes, lab test result(s), EKG, radiologic studies, plain films. Data interpreted: Pulse oximetry: on room air is 100 %. Interpretation: normal. 12:30 ED course: Patient hemodynamically stable. No acute findings on labs. Chest x-ray jr8 unremarkable. Patient feeling better at this time posttreatment. Will have patient follow-up with cardiology.. 07/14 10:16 Order name: Basic Metabolic Panel; Complete Time: 12:14 07/14 10:16 Order name: CBC with Diff; Complete Time: :07/14 10:16 Order name: LFT's; Complete Time: 12:07/14 10:16 Order name: Magnesium; Complete Time: 12:07/14 10:16 Order name: NT PRO-BNP; Complete Time: 12:07/14 10:16 Order name: PT-INR; Complete Time: 11:50 07/14 10:16 Order name: Troponin (emerg Dept Use Only); Complete Time: 12:14 07/14 10:16 Order name: XRAY Chest (1 view); Complete Time: 11:50 07/14 10:16 Order name: EKG; Complete Time: 10:17 07/14 10:16 Order name: Cardiac monitoring; Complete Time: 11:07/14 10:16 Order name: EKG - Nurse/Tech; Complete Time: 11:07/14 10:16 Order name: IV Saline Lock; Complete Time: 11:07/14 10:16 Order name: Labs collected and sent; Complete Time: jr8 07/14 10:16 Order name: O2 Per Protocol; Complete Time: 8 07/14 10:16 Order name: O2 Sat Monitoring; Complete Time: jr8 Administered Medications: 13:03 Not Given (Patient Refused): Ketorolac 15 mg IVP once ch5 Disposition: 13:19 Co-signature as Attending Physician, Cody Dickson MD I agree with the assessment and russ plan of care. Disposition Summary: 07/14/21 12:31 Discharge Ordered Location: Home jr8 Problem: new jr8 Symptoms: have improved jr8 Condition: Stable jr8 Diagnosis - Chest pain, unspecified jr8 Followup: jr8 - With: Luis Daniel Donald MD - When: 2 - 3 days - Reason: Recheck today's complaints, Continuance of care, Re-evaluation by your physician Discharge Instructions: - Discharge Summary Sheet jr8 - Nonspecific Chest Pain, Adult jr8 Forms: - Medication Reconciliation Form jr8 - Thank You Letter jr8 - Antibiotic Education jr8 - Prescription Opioid Use jr8 Prescriptions: - Ibuprofen 800 mg Oral Tablet - take 1 tablet by ORAL route every 12 hours As needed take with food; 20 tablet; jr8 Refills: 0, Product Selection Permitted Signatures: Dispatcher [employer] Cody Malin MD MD cha Roszak, Josh, PA PA jr8 Shae Burns RN Dominic Pugh RN ch5
[2021-07-14 13:09] VITALS: TEMP 97.8
[2021-07-14 13:12] VITALS: BP 117/74; O2SAT 100
== END 2021-07-14 13:02 | disposition home or self-care (01) ==
LOC: ER 09:57
DX: R07.89 Other chest pain (principal); R94.31 Abnormal electrocardiogram [ECG] [EKG]
CPT/HCPCS: 36415; 71045; 80048; 80076; 83735; 83880; 84484; 85025; 85610; 93005; 99285